=== PATIENT | male | born 1940 | race Asian ===

== ENCOUNTER 2020-09-19 08:42 | Emergency (ER) | payer MEDICARE ==
[~2020-09-19] VITALS: Ht 162.6 cm; Wt 63.5 kg
[2020-09-19 08:53] VITALS: BP_SYST 142
--- NOTE | 2020-09-19 09:01 | NUR ---
Patient to ER bed 6 to gown for evaluation. Side rails up. Report given to Radhika NICOLAS.
--- NOTE | 2020-09-19 09:15 | NUR ---
ER Tosha Veras at bedside examining patient.
--- NOTE | 2020-09-19 09:20 | NUR ---
Pt. came in with c/o right sided pain, stated fell playing tennis, has been taking excedrin for pain relief but this morning as getting OOB pain was an 8/10; felt like was time to be seen. Currently no pain, pain comes and goes with certain movements. Has brusing to Right elbow and forearm but denies any pain there.
--- NOTE | 2020-09-19 09:27 | NUR ---
Patient transported to radiology via WC, accompanied by rad staff.
--- NOTE | 2020-09-19 10:30 | NUR ---
Dr. Rodriguez at bedside discussing results of CT scan
[2020-09-19] MEDS ORDERED: IBUP-1969 PO (10:40)
[2020-09-19] MEDS ORDERED: HYDR-3917 PO (10:40)
--- NOTE | 2020-09-19 11:14 | NUR ---
Patient given written and verbal discharge instructions and verbalizes understanding. Dr. Rodriguez discussed with patient the results and treatment provided. Patient in stable condition. ID arm band removed. Rx of Ibuprofen and [place] given. Patient educated on pain management and to follow up with PMD. Pain Scale 3. Opportunity for questions provided and answered. Medication side effect fact sheet provided.
[2020-09-19 11:16] VITALS: BP_SYST 174
== END 2020-09-19 11:14 | disposition home or self-care (01) ==
LOC: SED 08:42
DX: S22.31XA Fracture of one rib, right side, initial encounter for closed fracture (principal); W18.39XA Other fall on same level, initial encounter; Y93.89 Activity, other specified; Y92.89 Other specified places as the place of occurrence of the external cause; Y99.8 Other external cause status
CPT/HCPCS: 71250-TC; 76376; 99284